=== PATIENT | male | born 1990 | race Caucasian/White ===

== ENCOUNTER 2018-08-20 15:42 | Emergency (ER) | payer OTHER ==
[2018-08-20 17:40] LABS: HEMATOCRIT 44.6 % (42.0-52.0); HEMOGLOBIN 15.4 g/dl (13.5-17.5); MEAN CORPUSCULAR HEMOGLOBIN 29.4 pg (27.0-33.0); MEAN CORPUSCULAR HGB CONC 34.5 g/dl (32.0-36.5); MEAN CORPUSCULAR VOLUME 85.1 fl (80.0-96.0); PLATELET COUNT, AUTOMATED 214 10^3/uL (150-450); RED BLOOD COUNT 5.24 10^6/uL (4.30-6.10); RED CELL DISTRIBUTION WIDTH 12.4 % (11.5-14.5); WHITE BLOOD COUNT 9.9 10^3/uL (4.0-10.0)
[2018-08-20] MEDS: METOCLOPRAMIDE INJ 10MG/2ML VIAL (J2765) IV (17:41)
[2018-08-20] MEDS: diphenhydrAMINE INJ 50MG/ML VIAL (J1200) IV (17:43)
[2018-08-20] MEDS: KETOROLAC 30 MG/ML VIAL (J1885) IV (17:43)
[2018-08-20 17:46] LABS: ADD MANUAL DIFFER YES; DIFF SLIDE NUMBER 344; POSITIVE DIFF POS FLAG
[2018-08-20 17:57] LABS: ALBUMIN 4.4 GM/DL (3.2-5.2); ALBUMIN/GLOBULIN RATIO 1.26 (1.00-1.93); ALKALINE PHOSPHATASE 82 U/L (45-117); ALT/SGPT 103 U/L (12-78); ANION GAP 13 MEQ/L (8-16); AST/SGOT 40 U/L (7-37); BILIRUBIN,TOTAL 0.8 MG/DL (0.2-1.0); BLOOD UREA NITROGEN 14 MG/DL (7-18); CALCIUM LEVEL 9.5 MG/DL (8.5-10.1); CARBON DIOXIDE LEVEL 26 MEQ/L (21-32); CHLORIDE LEVEL 100 MEQ/L (98-107); CREATININE FOR GFR 1.15 MG/DL (0.70-1.30); GLOMERULAR FILTRATION RATE > 60.0 (>60); GLUCOSE, FASTING 111 MG/DL (70-100); LIPASE 138 U/L (73-393); POTASSIUM SERUM 3.7 MEQ/L (3.5-5.1); SODIUM LEVEL 139 MEQ/L (136-145); TOTAL PROTEIN 7.9 GM/DL (6.4-8.2)
[2018-08-20] MEDS: NS 1,000 ML IV (17:59)
[2018-08-20 18:05] LABS: BASOPHILS 1 % (0-4); LYMPHOCYTES 4 % (16-52); MONOCYTES 7 % (0-8); NEUTROPHILS 88 % (35-75); PLATELET ESTIMATE NORMAL (NORMAL)
[2018-08-20 18:17] LABS: INFLUENZA A AMPLIFICATION POSITIVE (NEGATIVE); INFLUENZA B AMPLIFICATION NEGATIVE (NEGATIVE)
[2018-08-20] MEDS: ACETAMINOPHEN 325 MG TAB PO (19:57)
== END 2018-08-20 19:58 | disposition home or self-care (01) ==
LOC: M ED 15:42
DX: J09.X2 Influenza due to identified novel influenza A virus with other respiratory manifestations (principal); R51 Headache; R52 Pain, unspecified; Z88.0 Allergy status to penicillin; Z88.8 Allergy status to other drugs, medicaments and biological substances
CPT/HCPCS: J1200